=== PATIENT | female | born 1960 | race Hispanic/Latino ===

== ENCOUNTER 2019-02-07 15:31 | Emergency (ER) | payer MEDICARE, OTHER ==
[2019-02-07] MEDS ORDERED: KEPPRA 1,000 MG/NS 0.75% 100ML 1,000 MG/100 ML BAG IV ONE (16:57)
--- NOTE | 2019-02-07 17:03 | Emergency Department Report ---
HPI - General Chief Complaint: Altered Mental Status Time Seen by Provider: 02/07/19 16:47 - HPI HPI: Room 3 The patient is a 58-year-old female presenting with chief complaint of seizure. The patient is currently at [facility] under a 1013 for depression. Staff states right arrival the patient was was witnessing a chair and then began shaking as if she was having a seizure. Staff states she had a generalized tonic-clonic seizure approximately 5 minutes and then had snoring respirations afterwards. They state the patient was postictal for 15 minutes before she returned to her baseline. Now the patient just complains of feeling tired with muscle soreness. Staff denies any trauma as they state they lowered the patient down to the ground themselves. The patient states approximately 6-7 months ago she was diagnosed with seizures and started on a medication (patient cannot recall the name). The patient states she only took the medication for approximately 2 months because she did not feel as though she was having seizures Location: [facility] Duration: 5 minutes, see above Quality: Generalized tonic-clonic Severity: Moderate Modifying factors: [see above] Context: [see above] Mode of transportation: [not driving] ED Past Medical Hx - Past Medical History Previous Medical History?: Yes Hx Arthritis: Yes - Family History Family history: no significant - Social History Smoking Status: Current Every Day Smoker (1 pack per day) Substance Use Type: None (denies illicit drug use) - Medications Home Medications: Home Medications Medication Instructions Recorded Confirmed Last Taken Type levETIRAcetam [Keppra] 500 mg PO BID #90 tablet 02/07/19 Unknown Rx ED Review of Systems ROS: Stated complaint: ALTERED MENTAL STATUS Other details as noted in HPI Constitutional: malaise Eyes: denies: eye pain ENT: denies: throat pain Respiratory: no symptoms reported Cardiovascular: denies: chest pain Endocrine: no symptoms reported Gastrointestinal: denies: abdominal pain Genitourinary: denies: dysuria Musculoskeletal: back pain, myalgia Neurological: other (seizure) Physical Exam - Physical Exam Vital Signs: Vital Signs 02/07/19 16:15 Temperature 98.2 F Pulse Rate 87 Respiratory 20 Rate Blood Pressure 124/62 [Left] O2 Sat by Pulse 96 Oximetry Physical Exam: GENERAL: The patient is well-developed well-nourished female lying on stretcher not appearing to be in acute distress. [] HEENT: Normocephalic. Atraumatic. Extraocular motions are intact. Patient has moist mucous membranes. NECK: Supple. No meningitic signs are noted. Trachea midline CHEST/LUNGS: Clear to auscultation. There is no respiratory distress noted. HEART/CARDIOVASCULAR: Regular. There is no tachycardia. There is no gallop rub or murmur. ABDOMEN: Abdomen is soft, nontender. Patient has normal bowel sounds. There is no abdominal distention. SKIN: There is no rash. There is no edema. There is no diaphoresis. NEURO: The patient is awake, alert, and oriented. The patient is cooperative. The patient has no focal neurologic deficits. The patient has normal speech. Cranial nerves II through XII grossly intact, no drift MUSCULOSKELETAL: There is no evidence of acute injury. ED Course Vital Signs 02/07/19 16:15 Temperature 98.2 F Pulse Rate 87 Respiratory 20 Rate Blood Pressure 124/62 [Left] O2 Sat by Pulse 96 Oximetry ED Medical Decision Making - Lab Data Result diagrams: 02/07/19 17:18 02/07/19 17:18 Laboratory Tests 02/07/19 02/07/19 02/07/19 16:40 17:18 17:18 WBC RBC Hgb Hct MCV MCH MCHC RDW Plt Count Lymph % (Auto) [place] % (Auto) Eos % (Auto) Baso % (Auto) Lymph # [place] # Eos # Baso # Seg Neutrophils % Seg Neutrophils # Sodium 139 Potassium 3.4 L Chloride 97.7 L Carbon Dioxide 28 Anion Gap 17 BUN 12 Creatinine 0.5 L Estimated GFR > 60 BUN/Creatinine Ratio 24 Glucose 102 H POC Glucose 118 H Calcium 9.1 Magnesium 2.30 02/07/19 17:18 WBC 11.4 H RBC 3.73 Hgb 11.7 Hct 34.8 MCV 93 MCH 31 MCHC 34 RDW 15.6 H Plt Count 379 Lymph % (Auto) 9.1 L [place] % (Auto) 4.9 Eos % (Auto) 0.1 Baso % (Auto) 0.2 Lymph # 1.0 L [place] # 0.6 Eos # 0.0 Baso # 0.0 Seg Neutrophils % 85.7 H Seg Neutrophils # 9.8 H Sodium Potassium Chloride Carbon Dioxide Anion Gap BUN Creatinine Estimated GFR BUN/Creatinine Ratio Glucose POC Glucose Calcium Magnesium - EKG Data -: EKG Interpreted by Wi EKG shows normal: sinus rhythm Rate: normal - EKG Data When compared to previous EKG there are: previous EKG unavailable Interpretation: nonspecific ST-T wave tiburcio (T-wave inversion in lead 3) - Radiology Data Radiology results: report reviewed (CT head), image reviewed (CT scan) [facility] [address] [place] [address] Cat Scan Report Signed Patient: MIGDALIA PENG MR#: [id number] 31 : 1960 Acct:[id number] Age/Sex: 58 / F ADM Date: 02/07/19 Loc: ED Attending Dr: Ordering Physician: DYLAN PAN MD Date of Service: 02/07/19 Procedure(s): CT head/brain wo con Accession Number(s): [id number] cc: DYLAN PAN MD PROCEDURE: CT HEAD/BRAIN WO CON TECHNIQUE: Axial helical imaging from the skull base to the vertex. HISTORY: seizure COMPARISONS: None FINDINGS: There is no evidence of an acute intracranial process, intracranial hemorrhage or mass effect. The ventricles are normal size. The visualized portions of the orbits, paranasal and mastoid sinuses are unremarkable. There is no evidence of fracture. There is a left parietal occipital scalp hematoma. IMPRESSION: 1. No evidence of an acute intracranial process, intracranial hemorrhage or mass effect. If further imaging is required, MRI of the brain may be helpful. 2. No evidence of fracture. 3. Left parietal occipital scalp hematoma. This document is electronically signed by Violet Pollard MD., February 07 2019 06:22:40 PM ET Transcribed By: ED Dictated By: VIOLET POLLARD MD Electronically Authenticated By: VIOLET POLLARD MD Signed Date/Time: 02/07/19 1824 DD/ 50 TD/TT: 02/07/191751 - Differential Diagnosis seizure Critical care attestation.: If time is entered above; I have spent that time in minutes in the direct care of this critically ill patient, excluding procedure time. ED Disposition Clinical Impression: Seizure Disposition: DC/TX-65 PSY HOSP/PSY UNIT Is pt being admited?: No Does the pt Need Aspirin: No Condition: Stable Instructions: Epilepsy (ED) Additional Instructions: Return to the emergency department immediately should you develop worsening symptoms, fever, inability to tolerate food or liquid or any other concerns. Prescriptions: levETIRAcetam [Keppra] 500 mg PO BID #90 tablet Referrals: ALVERTO ALMODOVAR MD [Primary Care Provider] - 3-5 Days ROHAN ALFARO MD [Staff Physician] - 3-5 Days (Dr. Alfaro is a neurologist. Please follow up with him for further evaluation) Time of Disposition: 18:38
[2019-02-07 17:35] LABS: Basophils % (Auto) 0.2 % (0.0-1.8); Eosinophils % (Auto) 0.1 % (0.0-4.3); Hematocrit 34.8 % (30.3-42.9); Hemoglobin 11.7 gm/dl (10.1-14.3); Lymphocytes % (Auto) 9.1 % (13.4-35.0); Mean Corpuscular HGB Conc 34 % (30-34); Mean Corpuscular Volume 93 fl (79-97); Monocytes # (Auto) 0.6 K/mm3 (0.0-0.8); Monocytes % (Auto) 4.9 % (0.0-7.3); Platelet Count 379 K/mm3 (140-440); Red Blood Count 3.73 M/mm3 (3.65-5.03); Red Cell Distribution Width 15.6 % (13.2-15.2)
[2019-02-07 17:53] LABS: BUN/Creatinine Ratio 24; Blood Urea Nitrogen 12 mg/dL (7-17); Calcium 9.1 mg/dL (8.4-10.2); Hemolysis Index 4
--- NOTE | 2019-02-07 18:24 | Cat Scan Report ---
PROCEDURE: CT HEAD/BRAIN WO CON TECHNIQUE: Axial helical imaging from the skull base to the vertex. HISTORY: seizure COMPARISONS: None FINDINGS: There is no evidence of an acute intracranial process, intracranial hemorrhage or mass effect. The ventricles are normal size. The visualized portions of the orbits, paranasal and mastoid sinuses are unremarkable. There is no evidence of fracture. There is a left parietal occipital scalp hematoma. IMPRESSION: 1. No evidence of an acute intracranial process, intracranial hemorrhage or mass effect. If further imaging is required, MRI of the brain may be helpful. 2. No evidence of fracture. 3. Left parietal occipital scalp hematoma. This document is electronically signed by Violet Pollard MD., February 07 2019 06:22:40 PM ET
[2019-02-07 20:06] VITALS: BP 120/64
== END 2019-02-07 21:06 ==
LOC: ED 15:31
DX: R56.9 Unspecified convulsions (principal); F32.9 Major depressive disorder, single episode, unspecified; M19.90 Unspecified osteoarthritis, unspecified site; F17.200 Nicotine dependence, unspecified, uncomplicated; Z88.8 Allergy status to other drugs, medicaments and biological substances
CPT/HCPCS: 36415; 70450; 80048; 82962; 83735; 85025; 93005; 93010; 96374; 99285; J1953